=== PATIENT | male | born 2000 | race Two or more races ===

== ENCOUNTER 2019-05-31 23:10 | Emergency (ER) | payer OTHER ==
[~2019-05-31] VITALS: Ht 172.7 cm; Wt 70.3 kg
[2019-05-31 23:16] VITALS: BP 128/74
--- NOTE | 2019-05-31 23:33 | NUR ---
BIBSELF FROM HOME WITH FAMILY. TO ER BED 1. AAOX4. NO RSP DISTRESS. AMBULATORY. C/O R KNEE SWELLING SARTED TODAY. NO PAIN. NO REDNESS. ROM INTACT. 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 ORDERS RECEIBED, NOTED AND CARRIED OUT. PAVEL WRAPP ON R KNEE APPLIED BY EMT. INTRUCTIONS GIVEN TO PT
--- NOTE | 2019-05-31 23:42 | NUR ---
Patient discharged to home in stable condition. Written and verbal after care instructions given. Patient verbalizes understanding of instruction. Pt ambulatory with a steady gait
== END 2019-05-31 23:42 | disposition home or self-care (01) ==
LOC: ER 23:23
DX: S83.8X1A Sprain of other specified parts of right knee, initial encounter (principal); X58.XXXA Exposure to other specified factors, initial encounter; Y93.89 Activity, other specified; Y92.89 Other specified places as the place of occurrence of the external cause; Y99.8 Other external cause status